=== PATIENT | female | born 1945 | race Caucasian/White ===

== ENCOUNTER 2017-04-17 20:00 | Inpatient (IN) | payer MEDICARE, OTHER ==
[~2017-04-17] VITALS: Ht 154.9 cm; Wt 80.6 kg
[~2017-04-17 20:00] MED LIST: METF500T4 PO
[2017-04-17 20:22] LABS: GLUCOSE,POINT OF CARE 290 MG/DL (70-110)
[2017-04-17] MEDS ORDERED: CefTRIAXone 1 GM/DEXTROSE 50 ML IV ONE (23:30)
[2017-04-17] MEDS ORDERED: 0.9% SODIUM CHLORIDE 10 ML SYRINGE IVP PRN (23:45)
[2017-04-17] MEDS ORDERED: PIPERACILLIN/TAZO 3.375 GM/D5W 50 ML IV ONE (23:45)
[2017-04-17] MEDS ORDERED: ONDANSETRON HCL 4 MG/2 ML VIAL IVP PRN (23:45)
[2017-04-17 23:48] LABS: BASOPHILS % (AUTO) 0.1 % (0.0-2.0); EOSINOPHILS % (AUTO) 2.7 % (1.0-6.0); HEMATOCRIT 35.7 % (36-46); HEMOGLOBIN 12.1 g/dL (12.0-16.0); LYMPHOCYTES # (AUTO) 0.9 K/uL (1.0-4.8); LYMPHOCYTES % (AUTO) 14.1 % (22.0-44.0); MEAN CORPUSCULAR HEMOGLOBIN 28.5 pg (26.0-34.0); MEAN CORPUSCULAR HGB CONC 33.8 G/dL (31.0-37.0); MEAN CORPUSCULAR VOLUME 84 fL (80-100); MONOCYTES # (AUTO) 0.4 K/uL (0.1-1.0); MONOCYTES % (AUTO) 5.8 % (2.0-9.0); NEUTROPHILS # (AUTO) 4.8 K/uL (1.8-7.7); NEUTROPHILS % (AUTO) 77.3 % (40.0-70.0); PLATELET COUNT (AUTO) 258 K/uL (150-450); RED BLOOD CELL COUNT(AUTO) 4.23 MIL/uL (4.00-5.20); RED CELL DISTRIBUTION WIDTH 15.1 % (11.5-14.5); WHITE BLOOD COUNT (AUTO) 6.3 K/uL (4.5-11.0)
[2017-04-17 23:58] LABS: CALCIUM, TOTAL 8.7 mg/dL (8.8-10.5); CREATININE 1.01 mg/dL (0.60-1.30); POTASSIUM 3.8 mmol/L (3.5-5.1); PROTHROMBIN TIME 10.3 SEC (9.4-11.6)
[2017-04-18 00:06] LABS: ALBUMIN 2.6 g/dL (3.4-5.0); BILIRUBIN,TOTAL 0.3 mg/dL (0.1-1.0); TOTAL PROTEIN, SERUM 7.7 g/dL (6.4-8.2)
[2017-04-18 00:29] LABS: APPEARANCE,URINE CLEAR (CLEAR); GLUCOSE, URINE (UA) >=1000 mg/dL (NEGATIVE); KETONES,URINE NEGATIVE (NEGATIVE); LEUKOCYTE ESTERASE ,URINE NEGATIVE (NEGATIVE); OCCULT BLOOD,URINE TRACE (NEGATIVE); PROTEIN,URINE SEE CONFIRM (NEGATIVE)
[2017-04-18] MEDS: ACETAMINOPHEN 325 MG TABLET PO PRN ×2 (00:49→05:19)
[2017-04-18 01:01] LABS: SULFOSALICYLIC ACID,URINE 2+ (Negative); WBC,URINE 0-2 /HPF (0-5)
[2017-04-18 01:02] LABS: SQUAMOUS EPITHELIAL CELL,UR Few /LPF (None Seen)
[2017-04-18 01:36] VITALS: BP 185/85
[2017-04-18 05:07] VITALS: BP 138/73
[2017-04-18 07:45] VITALS: BP 134/76
[2017-04-18] MEDS ORDERED: ACETAMINOPHEN 325 MG TABLET PO PRN (08:45)
[2017-04-18] MEDS ORDERED: ALBUTEROL SULFATE 2.5 MG/0.5 ML NEB SOLUTION NEB PRN (08:45)
[2017-04-18] MEDS ORDERED: MAGNESIUM HYDROXIDE SUSPENSION 30 ML UDCUP PO PRN (08:45)
[2017-04-18] MEDS ORDERED: DOCUSATE SODIUM 100 MG CAPSULE PO SCH (09:00)
[2017-04-18] MEDS ORDERED: INSULIN ASPART 100 UNITS/ML SQ PRN (09:00)
[2017-04-18] MEDS ORDERED: PANTOPRAZOLE SODIUM 40 MG DR TABLET PO SCH (09:00)
[2017-04-18] MEDS ORDERED: SODIUM CHLORIDE 0.9% 1,000 ML IV ONE (09:00)
[2017-04-18] MEDS ORDERED: DEXTROSE 50%-WATER 25 GM/50 ML SYRINGE IVP PRN (09:00)
[2017-04-18] MEDS ORDERED: NYSTATIN 15 GM POWDER BOTTLE TP SCH (09:00)
[2017-04-18 11:02] VITALS: BP 132/73
[2017-04-18 14:50] VITALS: BP 157/76
[2017-04-18] MEDS ORDERED: HEPARIN SODIUM,PORCINE 5,000 UNITS/ML VIAL SQ SCH (16:00)
[2017-04-19 03:53] LABS: GLUCOSE COMMENT 1 Received Meds; GLUCOSE,POINT OF CARE 337 MG/DL (70-110)
== END 2017-04-18 16:45 | disposition left against medical advice (07) | DRG 638 ==
LOC: EMS 20:02 → 5S 23:00 → 6N 04-18 14:07
PROVIDERS: ADMIT Internal Medicine; ATTEND Internal Medicine
DX: E11.65 Type 2 diabetes mellitus with hyperglycemia (principal); E44.0 Moderate protein-calorie malnutrition; W19.XXXA Unspecified fall, initial encounter; S81.809A Unspecified open wound, unspecified lower leg, initial encounter; Z59.0 Homelessness; R53.81 Other malaise; I10 Essential (primary) hypertension; M17.12 Unilateral primary osteoarthritis, left knee; Z53.21 Procedure and treatment not carried out due to patient leaving prior to being seen by health care provider; F29 Unspecified psychosis not due to a substance or known physiological condition; Z68.33 Body mass index [BMI] 33.0-33.9, adult; Y93.89 Activity, other specified; Y92.89 Other specified places as the place of occurrence of the external cause; Y99.8 Other external cause status
CPT/HCPCS: 82962; 83605; 87040; 87081; 93005; 93970; 96365; 96366; 96368; 97161; 99285; J0696; J2543

== ENCOUNTER 2017-06-12 11:39 | Emergency (ER) | payer MEDICARE, OTHER ==
[~2017-06-12] VITALS: Ht 154.9 cm; Wt 82.7 kg
[2017-06-12] MEDS ORDERED: BLOOD PRESSURE PO (11:49)
[2017-06-12 13:03] LABS: GLUCOSE,POINT OF CARE 300 MG/DL (70-110)
[2017-06-12 14:20] LABS: BASOPHILS % (AUTO) 0.9 % (0.0-2.0); EOSINOPHILS % (AUTO) 4.2 % (1.0-6.0); HEMATOCRIT 31.8 % (36-46); HEMOGLOBIN 10.9 g/dL (12.0-16.0); LYMPHOCYTES # (AUTO) 0.7 K/uL (1.0-4.8); LYMPHOCYTES % (AUTO) 13.9 % (22.0-44.0); MEAN CORPUSCULAR HEMOGLOBIN 28.7 pg (26.0-34.0); MEAN CORPUSCULAR HGB CONC 34.2 G/dL (31.0-37.0); MEAN CORPUSCULAR VOLUME 84 fL (80-100); MONOCYTES # (AUTO) 0.4 K/uL (0.1-1.0); MONOCYTES % (AUTO) 7.9 % (2.0-9.0); NEUTROPHILS # (AUTO) 3.6 K/uL (1.8-7.7); NEUTROPHILS % (AUTO) 73.1 % (40.0-70.0); PLATELET COUNT (AUTO) 279 K/uL (150-450); RED BLOOD CELL COUNT(AUTO) 3.78 MIL/uL (4.00-5.20); RED CELL DISTRIBUTION WIDTH 14.9 % (11.5-14.5); WHITE BLOOD COUNT (AUTO) 4.9 K/uL (4.5-11.0)
[2017-06-12] MEDS ORDERED: SODIUM CHLORIDE 0.9% 1,000 ML IV ONE ×2 (14:30→16:00)
[2017-06-12 14:31] LABS: ANION GAP 4 mmol/L (8-16); CALCIUM, TOTAL 8.5 mg/dL (8.8-10.5); CARBON DIOXIDE 30 mmol/L (22-29); CHLORIDE 103 mmol/L (98-107); CREATININE 0.96 mg/dL (0.60-1.30); GLOMERULAR FILTR. RATE CALC 57 mL/min (>60); POTASSIUM 4.3 mmol/L (3.5-5.1); SODIUM SERUM 137 mmol/L (136-145); UREA NITROGEN, BLOOD 18 mg/dL (7-18)
[2017-06-12 14:36] LABS: ALANINE AMINOTRANSFERASE 16 U/L (12-78); ALBUMIN 2.4 g/dL (3.4-5.0); ASPARTATE AMINOTRANSFERASE 13 U/L (15-37); BILIRUBIN,TOTAL 0.1 mg/dL (0.1-1.0); CREATINE KINASE, TOTAL 60 U/L (26-192); TOTAL PROTEIN, SERUM 7.3 g/dL (6.4-8.2)
[2017-06-12 14:40] LABS: PROTHROMBIN TIME 10.1 SEC (9.4-11.6)
[2017-06-12 14:45] LABS: B-TYPE NATRIURETIC PEPTIDE 135 pg/mL (0-100)
[2017-06-12] MEDS ORDERED: CIPROFLOXACIN HCL 250 MG TABLET PO ONE (17:15)
[2017-06-12] MEDS ORDERED: BACITRACIN 0.9 GM PACKET OINTMENT TP ONE (17:15)
[2017-06-12] MEDS ORDERED: CEPHALEXIN MONOHYDRATE 500 MG CAPSULE PO ONE (17:15)
[2017-06-12 17:32] VITALS: BP 135/71
[2017-06-12 17:49] LABS: APPEARANCE,URINE CLEAR (CLEAR); GLUCOSE, URINE (UA) >=1000 mg/dL (NEGATIVE); KETONES,URINE NEGATIVE (NEGATIVE); LEUKOCYTE ESTERASE ,URINE NEGATIVE (NEGATIVE); OCCULT BLOOD,URINE NEGATIVE (NEGATIVE); PH,URINE 6.5 (5.0-8.0); PROTEIN,URINE SEE CONFIRM (NEGATIVE)
[2017-06-12 17:51] LABS: ADD UA MICROSCOPIC YES
[2017-06-12 18:00] LABS: SULFOSALICYLIC ACID,URINE 2+ (Negative)
[2017-06-12 18:01] LABS: RBC,URINE None Seen /HPF (0-2); WBC,URINE 0-2 /HPF (0-5)
== END 2017-06-12 17:32 | disposition home or self-care (01) ==
LOC: EMS 11:41
DX: E86.0 Dehydration (principal); E11.65 Type 2 diabetes mellitus with hyperglycemia; L03.116 Cellulitis of left lower limb; T75.89XA Other specified effects of external causes, initial encounter; I10 Essential (primary) hypertension; Z91.14 Patient's other noncompliance with medication regimen; X30.XXXA Exposure to excessive natural heat, initial encounter; Y93.89 Activity, other specified; Y92.89 Other specified places as the place of occurrence of the external cause; Y99.8 Other external cause status
CPT/HCPCS: 36415; 51702; 71010; 80053; 81001; 82550; 82962; 83880; 84484; 85025; 85610; 85730; 93005; 99285; J7030

== ENCOUNTER 2018-02-11 09:47 | Emergency (ER) | payer MEDICARE, OTHER ==
[~2018-02-11] VITALS: Ht 154.9 cm; Wt 83.2 kg
[~2018-02-11 09:47] MED LIST changes: +BLOOD PRESSURE PO; -METF500T4 PO; +METF500T6 PO
[2018-02-11 10:05] LABS: GLUCOSE,POINT OF CARE 213 MG/DL (70-110)
[2018-02-11] MEDS ORDERED: ONDANSETRON HCL 4 MG TABLET PO ONE (11:45)
[2018-02-11] MEDS ORDERED: CefTRIAXone SODIUM 1 GM/VIAL IM ONE (11:45)
[2018-02-11] MEDS ORDERED: HYDROCODONE/ACETAMINOPHEN 10-325 MG TABLET PO ONE (11:45)
[2018-02-11] MEDS ORDERED: MUPIROCIN CALCIUM 2% 15 GM CREAM TP ONE (11:45)
[2018-02-11] MEDS ORDERED: LIDOCAINE HCL/PF 1% 2 ML VIAL IM ONE (11:45)
[2018-02-11 12:57] VITALS: BP 175/79
== END 2018-02-11 12:55 | disposition home or self-care (01) ==
LOC: EMS 09:49
DX: L03.115 Cellulitis of right lower limb (principal); I10 Essential (primary) hypertension; E11.9 Type 2 diabetes mellitus without complications
CPT/HCPCS: 82962; 87070; 87077; 87205; 96372; 99284; J0696; J3490; Q0162

== ENCOUNTER 2018-02-24 08:27 | Emergency (ER) | payer MEDICARE, OTHER ==
[~2018-02-24] VITALS: Ht 154.9 cm; Wt 83.2 kg
[2018-02-24 08:39] LABS: GLUCOSE,POINT OF CARE 283 MG/DL (70-110)
[2018-02-24] MEDS ORDERED: HYDROGEN PEROXIDE 118 ML SOLUTION TP ONE (09:15)
[2018-02-24] MEDS ORDERED: AmLODIPine BESYLATE 5 MG TABLET PO ONE (09:15)
[2018-02-24] MEDS ORDERED: BACITRACIN 0.9 GM PACKET OINTMENT TP ONE ×2 (09:15→09:30)
[2018-02-24] MEDS ORDERED: BACITRACIN 28.4 GM OINTMENT TP ONE (09:30)
[2018-02-24 10:36] VITALS: BP 185/89
== END 2018-02-24 10:38 | disposition home or self-care (01) ==
LOC: EMS 08:28
DX: L03.116 Cellulitis of left lower limb (principal); L03.115 Cellulitis of right lower limb; E11.65 Type 2 diabetes mellitus with hyperglycemia; I10 Essential (primary) hypertension; R60.0 Localized edema; M19.90 Unspecified osteoarthritis, unspecified site; Z79.84 Long term (current) use of oral hypoglycemic drugs
CPT/HCPCS: 11000; 99284

== ENCOUNTER 2018-04-05 07:01 | Inpatient (IN) | payer MEDICARE, OTHER ==
[~2018-04-05] VITALS: Ht 154.9 cm; Wt 82.7 kg
[2018-04-05 07:18] LABS: GLUCOSE,POINT OF CARE 284 MG/DL (70-110)
[2018-04-05] MEDS ORDERED: VANCOMYCIN HCL 1 GM/D5% WATER 200 ML IV ONE (08:30)
[2018-04-05 08:40] LABS: BASOPHILS % (AUTO) 1.2 % (0.0-2.0); EOSINOPHILS % (AUTO) 5.4 % (1.0-6.0); HEMATOCRIT 34.3 % (36-46); HEMOGLOBIN 11.5 g/dL (12.0-16.0); LYMPHOCYTES # (AUTO) 1.2 K/uL (1.0-4.8); LYMPHOCYTES % (AUTO) 20.9 % (22.0-44.0); MEAN CORPUSCULAR HEMOGLOBIN 27.8 pg (26.0-34.0); MEAN CORPUSCULAR HGB CONC 33.7 G/dL (31.0-37.0); MEAN CORPUSCULAR VOLUME 83 fL (80-100); MONOCYTES # (AUTO) 0.4 K/uL (0.1-1.0); MONOCYTES % (AUTO) 6.8 % (2.0-9.0); NEUTROPHILS # (AUTO) 3.7 K/uL (1.8-7.7); NEUTROPHILS % (AUTO) 65.7 % (40.0-70.0); PLATELET COUNT (AUTO) 284 K/uL (150-450); RED BLOOD CELL COUNT(AUTO) 4.14 MIL/uL (4.00-5.20)
[2018-04-05 09:04] LABS: CALCIUM, TOTAL 8.9 mg/dL (8.8-10.5); CREATININE 1.19 mg/dL (0.60-1.30); POTASSIUM 3.5 mmol/L (3.5-5.1)
[2018-04-05 09:10] LABS: ALBUMIN 2.5 g/dL (3.4-5.0); BILIRUBIN,TOTAL 0.2 mg/dL (0.1-1.0); TOTAL PROTEIN, SERUM 7.9 g/dL (6.4-8.2)
[2018-04-05] MEDS ORDERED: METOPROLOL TARTRATE 50 MG TABLET PO ONE (09:45)
[2018-04-05] MEDS ORDERED: MetFORMIN HCL 500 MG TABLET PO ONE (09:45)
[2018-04-05] MEDS ORDERED: LISINOPRIL 10 MG TABLET PO ONE (09:45)
[2018-04-05 09:49] LABS: LACTIC ACID 1.2 mmol/L (0.4-2.0)
[2018-04-05] MEDS ORDERED: ONDANSETRON HCL 4 MG/2 ML VIAL IVP PRN ×2 (10:15→21:45)
[2018-04-05] MEDS ORDERED: 0.9% SODIUM CHLORIDE 10 ML SYRINGE IVP PRN ×2 (10:15→21:45)
[2018-04-05] MEDS ORDERED: ACETAMINOPHEN 325 MG TABLET PO PRN (10:15)
[2018-04-05 11:21] VITALS: BP 190/82
[2018-04-05 11:49] LABS: GLUCOMETER DEV NAME(LOC) 6N 2D; GLUCOSE,POINT OF CARE 288 MG/DL (70-110)
[2018-04-05] MEDS ORDERED: DEXTROSE 50%-WATER 25 GM/50 ML SYRINGE IVP PRN (12:00)
[2018-04-05] MEDS: INSULIN LISPRO 100 UNITS/ML SQ PRN ×3 (12:29→20:40)
[2018-04-05 15:39] VITALS: BP 138/64
[2018-04-05] MEDS ORDERED: HYDROCODONE/ACETAMINOPHEN 5-325 MG TABLET PO PRN ×2 (16:45)
[2018-04-05 20:03] VITALS: BP 165/76
[2018-04-05] MEDS: VANCOMYCIN HCL 750 MG in DEXTROSE 5%-WATER 250 ML IV SCH (20:23)
[2018-04-05] MEDS: HydrALAZINE HCL 10 MG TABLET PO PRN (20:23)
[2018-04-05] MEDS: HEPARIN SODIUM,PORCINE 5,000 UNITS/ML VIAL SQ SCH (20:23)
[2018-04-05] MEDS ORDERED: SODIUM CHLORIDE 0.9% 500 ML IV ONE (20:27)
[2018-04-05 21:43] LABS: GLUCOMETER DEV NAME(LOC) 6N 2D; GLUCOSE,POINT OF CARE 238 MG/DL (70-110)
[2018-04-05 21:43] LABS: GLUCOMETER DEV NAME(LOC) 6N 2D; GLUCOSE,POINT OF CARE 181 MG/DL (70-110)
[2018-04-05] MEDS ORDERED: OxyCODONE HCL/ACETAMINOPHEN 5-325 MG TABLET PO PRN ×2 (21:45)
[2018-04-05] MEDS: DOCUSATE SODIUM 100 MG CAPSULE PO SCH (22:38)
[2018-04-06] VITALS (7 sets, daily range): BP systolic 131–213; BP diastolic 58–85
[2018-04-06 05:53] LABS: BASOPHILS % (AUTO) 0.8 % (0.0-2.0); EOSINOPHILS % (AUTO) 3.4 % (1.0-6.0); HEMATOCRIT 32.3 % (36-46); HEMOGLOBIN 10.9 g/dL (12.0-16.0); LYMPHOCYTES % (AUTO) 18.4 % (22.0-44.0); MEAN CORPUSCULAR HEMOGLOBIN 28.2 pg (26.0-34.0); MEAN CORPUSCULAR HGB CONC 33.6 G/dL (31.0-37.0); MEAN CORPUSCULAR VOLUME 84 fL (80-100); MONOCYTES # (AUTO) 0.4 K/uL (0.1-1.0); NEUTROPHILS # (AUTO) 3.8 K/uL (1.8-7.7); NEUTROPHILS % (AUTO) 69.4 % (40.0-70.0); PLATELET COUNT (AUTO) 256 K/uL (150-450); RED BLOOD CELL COUNT(AUTO) 3.85 MIL/uL (4.00-5.20); RED CELL DISTRIBUTION WIDTH 15.2 % (11.5-14.5)
[2018-04-06] MEDS: INSULIN LISPRO 100 UNITS/ML SQ PRN ×4 (06:01→21:43)
[2018-04-06 06:20] LABS: ALBUMIN 2.1 g/dL (3.4-5.0); BILIRUBIN,TOTAL 0.4 mg/dL (0.1-1.0); CALCIUM, TOTAL 8.5 mg/dL (8.8-10.5); CREATININE 1.22 mg/dL (0.60-1.30); TOTAL PROTEIN, SERUM 6.9 g/dL (6.4-8.2)
[2018-04-06 07:03] LABS: GLUCOMETER DEV NAME(LOC) 6N 2D; GLUCOSE,POINT OF CARE 289 MG/DL (70-110)
[2018-04-06] MEDS: PANTOPRAZOLE SODIUM 40 MG/VIAL IVP SCH (08:35)
[2018-04-06] MEDS: VANCOMYCIN HCL 750 MG in DEXTROSE 5%-WATER 250 ML IV SCH ×2 (08:35→20:08)
[2018-04-06] MEDS: DOCUSATE SODIUM 100 MG CAPSULE PO SCH ×2 (08:36→20:08)
[2018-04-06] MEDS: HEPARIN SODIUM,PORCINE 5,000 UNITS/ML VIAL SQ SCH ×2 (08:36→20:08)
[2018-04-06 11:54] LABS: GLUCOMETER DEV NAME(LOC) 6N 1E; GLUCOSE,POINT OF CARE 183 MG/DL (70-110)
[2018-04-06 19:34] LABS: GLUCOMETER DEV NAME(LOC) 6N 2D; GLUCOSE,POINT OF CARE 233 MG/DL (70-110)
[2018-04-06 20:58] LABS: GLUCOMETER DEV NAME(LOC) 6N 2D; GLUCOSE,POINT OF CARE 278 MG/DL (70-110)
[2018-04-07] VITALS (7 sets, daily range): BP systolic 160–208; BP diastolic 65–91
[2018-04-07] MEDS: HydrALAZINE HCL 10 MG TABLET PO PRN ×4 (00:11→22:37)
[2018-04-07 05:33] LABS: GLUCOMETER DEV NAME(LOC) 6N 2D; GLUCOSE,POINT OF CARE 195 MG/DL (70-110)
[2018-04-07] MEDS: INSULIN LISPRO 100 UNITS/ML SQ PRN ×4 (06:10→21:11)
[2018-04-07 07:40] LABS: CALCIUM, TOTAL 8.3 mg/dL (8.8-10.5); CREATININE 1.1 mg/dL (0.60-1.30); POTASSIUM 3.1 mmol/L (3.5-5.1); VANCOMYCIN,RANDOM 34.5 mcg/mL (25.0-50.0)
[2018-04-07] MEDS: PANTOPRAZOLE SODIUM 40 MG/VIAL IVP SCH (08:40)
[2018-04-07] MEDS: ZINC SULFATE 220 MG CAPSULE PO SCH ×2 (08:41→09:00)
[2018-04-07] MEDS: MULTIVITAMINS WITH MINERALS, THERAPEUTIC TABLET PO SCH ×2 (08:41→09:00)
[2018-04-07] MEDS: HEPARIN SODIUM,PORCINE 5,000 UNITS/ML VIAL SQ SCH ×2 (08:41→19:52)
[2018-04-07] MEDS: DOCUSATE SODIUM 100 MG CAPSULE PO SCH ×2 (08:41→19:52)
[2018-04-07 13:23] LABS: GLUCOMETER DEV NAME(LOC) 6N 2D; GLUCOSE,POINT OF CARE 281 MG/DL (70-110)
[2018-04-07 17:49] LABS: GLUCOMETER DEV NAME(LOC) 6N 2D; GLUCOSE,POINT OF CARE 194 MG/DL (70-110)
[2018-04-07] MEDS: CIPROFLOXACIN HCL 500 MG TABLET PO SCH (19:52)
[2018-04-08 00:24] LABS: GLUCOMETER DEV NAME(LOC) 6N 2D; GLUCOSE,POINT OF CARE 197 MG/DL (70-110)
[2018-04-08 04:02] VITALS: BP 205/90
[2018-04-08] MEDS: HydrALAZINE HCL 10 MG TABLET PO PRN ×3 (04:06→21:59)
[2018-04-08] MEDS: INSULIN LISPRO 100 UNITS/ML SQ PRN ×4 (05:47→20:30)
[2018-04-08 06:39] LABS: GLUCOMETER DEV NAME(LOC) 6N 2D; GLUCOSE,POINT OF CARE 156 MG/DL (70-110)
[2018-04-08 06:50] LABS: CALCIUM, TOTAL 8.5 mg/dL (8.8-10.5); CREATININE 1.04 mg/dL (0.60-1.30); POTASSIUM 3.1 mmol/L (3.5-5.1)
[2018-04-08 06:52] LABS: BASOPHILS % (AUTO) 1.2 % (0.0-2.0); EOSINOPHILS % (AUTO) 5.8 % (1.0-6.0); HEMOGLOBIN 11.8 g/dL (12.0-16.0); LYMPHOCYTES # (AUTO) 0.9 K/uL (1.0-4.8); LYMPHOCYTES % (AUTO) 22.3 % (22.0-44.0); MEAN CORPUSCULAR HEMOGLOBIN 28.2 pg (26.0-34.0); MEAN CORPUSCULAR HGB CONC 33.8 G/dL (31.0-37.0); MEAN CORPUSCULAR VOLUME 83 fL (80-100); MONOCYTES # (AUTO) 0.4 K/uL (0.1-1.0); MONOCYTES % (AUTO) 9.3 % (2.0-9.0); NEUTROPHILS # (AUTO) 2.6 K/uL (1.8-7.7); NEUTROPHILS % (AUTO) 61.4 % (40.0-70.0); PLATELET COUNT (AUTO) 263 K/uL (150-450); RED CELL DISTRIBUTION WIDTH 15.1 % (11.5-14.5)
[2018-04-08 07:15] VITALS: BP 183/77
[2018-04-08] MEDS ORDERED: VANCOMYCIN HCL 1 GM/D5% WATER 200 ML IV SCH (08:00)
[2018-04-08] MEDS: ZINC SULFATE 220 MG CAPSULE PO SCH (09:37)
[2018-04-08] MEDS: MULTIVITAMINS WITH MINERALS, THERAPEUTIC TABLET PO SCH (09:38)
[2018-04-08] MEDS: DOCUSATE SODIUM 100 MG CAPSULE PO SCH ×2 (09:38→20:30)
[2018-04-08] MEDS: PANTOPRAZOLE SODIUM 40 MG/VIAL IVP SCH (09:39)
[2018-04-08] MEDS: HEPARIN SODIUM,PORCINE 5,000 UNITS/ML VIAL SQ SCH ×2 (09:41→20:30)
[2018-04-08] MEDS: CIPROFLOXACIN HCL 500 MG TABLET PO SCH (09:48)
[2018-04-08 11:40] VITALS: BP 158/69
[2018-04-08 11:58] LABS: GLUCOMETER DEV NAME(LOC) 6N 1E; GLUCOSE,POINT OF CARE 244 MG/DL (70-110)
[2018-04-08] MEDS ORDERED: POTASSIUM CHLORIDE 20 MEQ ER TABLET PO ONE (14:30)
[2018-04-08 15:22] VITALS: BP 187/90
[2018-04-08] MEDS: LEVOFLOXACIN 500 MG TABLET PO SCH (17:23)
[2018-04-08 19:58] VITALS: BP 184/89
[2018-04-08 23:43] LABS: GLUCOMETER DEV NAME(LOC) 6N 2D; GLUCOSE,POINT OF CARE 146 MG/DL (70-110)
[2018-04-08 23:44] LABS: GLUCOMETER DEV NAME(LOC) 6N 2D; GLUCOSE,POINT OF CARE 240 MG/DL (70-110)
[2018-04-08 23:56] VITALS: BP 184/71
[2018-04-09 05:04] VITALS: BP 172/73
[2018-04-09] MEDS: INSULIN LISPRO 100 UNITS/ML SQ PRN ×2 (05:29→12:15)
[2018-04-09] MEDS: HydrALAZINE HCL 10 MG TABLET PO PRN (05:29)
[2018-04-09 05:49] LABS: BASOPHILS % (AUTO) 1.4 % (0.0-2.0); EOSINOPHILS % (AUTO) 5.4 % (1.0-6.0); HEMATOCRIT 34.7 % (36-46); HEMOGLOBIN 11.8 g/dL (12.0-16.0); LYMPHOCYTES % (AUTO) 24.7 % (22.0-44.0); MEAN CORPUSCULAR HEMOGLOBIN 28.2 pg (26.0-34.0); MEAN CORPUSCULAR HGB CONC 33.9 G/dL (31.0-37.0); MEAN CORPUSCULAR VOLUME 83 fL (80-100); MONOCYTES # (AUTO) 0.4 K/uL (0.1-1.0); MONOCYTES % (AUTO) 9.2 % (2.0-9.0); NEUTROPHILS # (AUTO) 2.3 K/uL (1.8-7.7); NEUTROPHILS % (AUTO) 59.3 % (40.0-70.0); PLATELET COUNT (AUTO) 271 K/uL (150-450); RED BLOOD CELL COUNT(AUTO) 4.17 MIL/uL (4.00-5.20)
[2018-04-09 06:02] LABS: CALCIUM, TOTAL 8.5 mg/dL (8.8-10.5); CREATININE 1.16 mg/dL (0.60-1.30); POTASSIUM 3.6 mmol/L (3.5-5.1)
[2018-04-09 06:40] LABS: GLUCOMETER DEV NAME(LOC) 6N 2D; GLUCOSE,POINT OF CARE 152 MG/DL (70-110)
[2018-04-09 08:09] VITALS: BP 184/68
[2018-04-09] MEDS: HEPARIN SODIUM,PORCINE 5,000 UNITS/ML VIAL SQ SCH (08:19)
[2018-04-09] MEDS: DOCUSATE SODIUM 100 MG CAPSULE PO SCH (08:20)
[2018-04-09] MEDS: ZINC SULFATE 220 MG CAPSULE PO SCH (08:20)
[2018-04-09] MEDS: PANTOPRAZOLE SODIUM 40 MG/VIAL IVP SCH (08:20)
[2018-04-09] MEDS: LEVOFLOXACIN 500 MG TABLET PO SCH (08:20)
[2018-04-09] MEDS: MULTIVITAMINS WITH MINERALS, THERAPEUTIC TABLET PO SCH (08:20)
[2018-04-09] MEDS ORDERED: CHLORHEXIDINE GLUCONATE 4% 118 ML TOPICAL LIQUID TP SCH (09:00)
[2018-04-09] MEDS ORDERED: LOSARTAN POTASSIUM 50 MG TABLET PO ONE (11:30)
[2018-04-09 11:57] VITALS: BP 142/63
[2018-04-09] MEDS ORDERED: LOSA25TA21 PO (14:40)
[2018-04-09] MEDS ORDERED: LEVO500 PO (14:41)
[2018-04-09 18:55] LABS: GLUCOMETER DEV NAME(LOC) 6N 1E; GLUCOSE,POINT OF CARE 243 MG/DL (70-110)
== END 2018-04-09 17:50 | disposition home or self-care (01) | DRG 602 ==
LOC: EMS 07:02 → 6N 10:07
PROVIDERS: ADMIT Internal Medicine; ATTEND Internal Medicine
DX: L03.116 Cellulitis of left lower limb (principal); E43 Unspecified severe protein-calorie malnutrition; I10 Essential (primary) hypertension; M19.90 Unspecified osteoarthritis, unspecified site; L03.115 Cellulitis of right lower limb; E87.6 Hypokalemia; E11.65 Type 2 diabetes mellitus with hyperglycemia; Z91.19 Patient's noncompliance with other medical treatment and regimen; Z59.0 Homelessness; Z68.34 Body mass index [BMI] 34.0-34.9, adult
CPT/HCPCS: 83605; 84132; 87040; 87070; 87205; 96365; 96366; 97162; 99285; C9113; J1644; J3370; J7040; J7060

== ENCOUNTER 2018-08-02 16:26 | Emergency (ER) | payer MEDICARE, OTHER ==
[~2018-08-02] VITALS: Ht 157.5 cm; Wt 89.0 kg
[~2018-08-02 16:26] MED LIST changes: +LEVO500 PO; +LOSA25TA41 PO; +METF-960 PO; -METF500T6 PO
[2018-08-02 17:03] VITALS: BP 189/90
[2018-08-02 17:10] LABS: GLUCOSE,POINT OF CARE 375 MG/DL (70-110)
[2018-08-02] MEDS ORDERED: SODIUM CHLORIDE 0.9% 1,000 ML IV ONE (17:30)
== END 2018-08-02 20:40 | disposition left against medical advice (07) ==
LOC: EMS 16:27
DX: R42 Dizziness and giddiness (principal); E11.9 Type 2 diabetes mellitus without complications; I10 Essential (primary) hypertension; W19.XXXA Unspecified fall, initial encounter; Y93.89 Activity, other specified; Y92.89 Other specified places as the place of occurrence of the external cause; Y99.8 Other external cause status
CPT/HCPCS: 82962; 93005; 99283; J7030

== ENCOUNTER 2019-01-31 16:44 | Emergency (ER) | payer MEDICARE, OTHER ==
[~2019-01-31] VITALS: Ht 154.9 cm; Wt 87.3 kg
[~2019-01-31 16:44] MED LIST changes: +ALBU8HFA IH; +AMLO-512 PO; -BLOOD PRESSURE PO; +FLUT1BLS IH; +GLIP5 PO; +LABE100T8 PO; -LEVO500 PO; -LOSA25TA41 PO; -METF-960 PO
[2019-01-31] MEDS ORDERED: 0.9% SODIUM CHLORIDE 10 ML SYRINGE IVP PRN (17:30)
[2019-01-31 18:02] LABS: BASOPHILS % (AUTO) 1.4 % (0.0-2.0); EOSINOPHILS % (AUTO) 5.8 % (1.0-6.0); HEMATOCRIT 23.5 % (36-46); HEMOGLOBIN 7.8 g/dL (12.0-16.0); LYMPHOCYTES # (AUTO) 0.6 K/uL (1.0-4.8); LYMPHOCYTES % (AUTO) 15.2 % (22.0-44.0); MEAN CORPUSCULAR HEMOGLOBIN 25.3 pg (26.0-34.0); MEAN CORPUSCULAR HGB CONC 32.9 G/dL (31.0-37.0); MEAN CORPUSCULAR VOLUME 77 fL (80-100); MONOCYTES # (AUTO) 0.3 K/uL (0.1-1.0); MONOCYTES % (AUTO) 8.6 % (2.0-9.0); NEUTROPHILS # (AUTO) 2.6 K/uL (1.8-7.7); PLATELET COUNT (AUTO) 379 K/uL (150-450); RED BLOOD CELL COUNT(AUTO) 3.06 MIL/uL (4.00-5.20); RED CELL DISTRIBUTION WIDTH 19.4 % (11.5-14.5)
[2019-01-31 18:24] LABS: CALCIUM, TOTAL 8.2 mg/dL (8.8-10.5); CREATININE 1.6 mg/dL (0.60-1.30)
[2019-01-31 18:29] LABS: ALBUMIN 1.8 g/dL (3.4-5.0); BILIRUBIN,TOTAL 0.1 mg/dL (0.1-1.0); TOTAL PROTEIN, SERUM 6.2 g/dL (6.4-8.2)
[2019-01-31] MEDS ORDERED: CefTRIAXone 1 GM/DEXTROSE 50 ML IV ONE (19:30)
[2019-01-31] MEDS ORDERED: SULFAMETHOX/TRIMETH DS 800-160 MG/TABLET PO ONE (19:30)
[2019-01-31 19:45] VITALS: BP 142/59
== END 2019-01-31 21:47 | disposition home or self-care (01) ==
LOC: EMS 16:46
DX: L03.116 Cellulitis of left lower limb (principal); L03.115 Cellulitis of right lower limb; J45.909 Unspecified asthma, uncomplicated; E11.9 Type 2 diabetes mellitus without complications; I10 Essential (primary) hypertension; M19.90 Unspecified osteoarthritis, unspecified site; Z88.5 Allergy status to narcotic agent
CPT/HCPCS: 36415; 80053; 83605; 85025; 87040; 96365; 99285; J0696

== ENCOUNTER 2019-09-15 21:33 | Emergency (ER) | payer MEDICARE, OTHER ==
[~2019-09-15] VITALS: Ht 154.9 cm; Wt 59.5 kg
[2019-09-15] MEDS ORDERED: LEVO25TA9 PO (23:17)
[2019-09-15] MEDS ORDERED: PARI1CAP11 PO (23:17)
[2019-09-15] MEDS ORDERED: METO25 PO (23:17)
[2019-09-15] MEDS ORDERED: CEPH500 PO (23:17)
[2019-09-15] MEDS ORDERED: ATOR40TA28 PO (23:17)
[2019-09-16 01:00] VITALS: BP 143/74
== END 2019-09-16 01:58 | disposition home or self-care (01) ==
LOC: EMS 21:38
DX: T83.028A Displacement of other urinary catheter, initial encounter (principal); R33.9 Retention of urine, unspecified; L03.116 Cellulitis of left lower limb; L03.115 Cellulitis of right lower limb; E11.9 Type 2 diabetes mellitus without complications; I10 Essential (primary) hypertension; J45.909 Unspecified asthma, uncomplicated; M19.90 Unspecified osteoarthritis, unspecified site; Z79.899 Other long term (current) drug therapy; Z88.5 Allergy status to narcotic agent; Y84.6 Urinary catheterization as the cause of abnormal reaction of the patient, or of later complication, without mention of misadventure at the time of the procedure
CPT/HCPCS: 51702

== ENCOUNTER 2019-10-27 10:39 | Inpatient (IN) | payer MEDICARE, OTHER ==
[~2019-10-27] VITALS: Ht 154.9 cm; Wt 63.1 kg
[~2019-10-27 10:39] MED LIST changes: -ALBU8HFA IH; -AMLO-512 PO; +ATOR40TA28 PO; +CEPH500 PO; -FLUT1BLS IH; -GLIP5 PO; -LABE100T8 PO; +LEVO25TA9 PO; +METO25 PO; +PARI1CAP11 PO
[2019-10-27 11:32] LABS: BASOPHILS % (AUTO) 0.8 % (0.0-2.0); EOSINOPHILS % (AUTO) 0.8 % (1.0-6.0); HEMOGLOBIN 13.5 g/dL (12.0-16.0); LYMPHOCYTES # (AUTO) 0.6 K/uL (1.0-4.8); LYMPHOCYTES % (AUTO) 10.7 % (22.0-44.0); MEAN CORPUSCULAR HEMOGLOBIN 27.8 pg (26.0-34.0); MEAN CORPUSCULAR HGB CONC 32.9 G/dL (31.0-37.0); MEAN CORPUSCULAR VOLUME 84 fL (80-100); MONOCYTES # (AUTO) 0.3 K/uL (0.1-1.0); MONOCYTES % (AUTO) 5.7 % (2.0-9.0); NEUTROPHILS # (AUTO) 4.9 K/uL (1.8-7.7); PLATELET COUNT (AUTO) 193 K/uL (150-450); RED BLOOD CELL COUNT(AUTO) 4.86 MIL/uL (4.00-5.20); RED CELL DISTRIBUTION WIDTH 21.6 % (11.5-14.5)
[2019-10-27 11:59] LABS: ANION GAP 8 mmol/L (8-16); CALCIUM, TOTAL 8.9 mg/dL (8.8-10.5); CARBON DIOXIDE 23 mmol/L (22-29); CHLORIDE 104 mmol/L (98-107); CREATININE 2.21 mg/dL (0.60-1.30); GLOMERULAR FILTR. RATE CALC 22 mL/min (>60); GLUCOSE,RANDOM 112 mg/dL (70-110); POTASSIUM 5.2 mmol/L (3.5-5.1); SODIUM SERUM 135 mmol/L (136-145); UREA NITROGEN, BLOOD 72 mg/dL (7-18)
[2019-10-27] MEDS ORDERED: HydrALAZINE HCL 20 MG/ML VIAL IVP ONE (12:00)
[2019-10-27 12:05] LABS: ALANINE AMINOTRANSFERASE 113 U/L (12-78); ALBUMIN 3.1 g/dL (3.4-5.0); ALKALINE PHOSPHATASE 154 U/L (46-116); ASPARTATE AMINOTRANSFERASE 75 U/L (15-37); BILIRUBIN,TOTAL 0.3 mg/dL (0.1-1.0); TOTAL PROTEIN, SERUM 8.3 g/dL (6.4-8.2)
[2019-10-27] MEDS ORDERED: LABETALOL HCL 5 MG/ML 20 ML VIAL IVP ONE (13:15)
[2019-10-27] MEDS ORDERED: ACETAMINOPHEN 325 MG TABLET PO PRN ×2 (13:45→23:30)
[2019-10-27] MEDS ORDERED: 0.9% SODIUM CHLORIDE 10 ML SYRINGE IVP PRN (13:45)
[2019-10-27] MEDS ORDERED: ONDANSETRON HCL 4 MG/2 ML VIAL IVP PRN ×2 (13:45→23:30)
[2019-10-27] MEDS: PARICALCITOL 1 MCG CAPSULE PO SCH (20:30)
[2019-10-27 20:47] VITALS: BP 200/96
[2019-10-27] MEDS: METOPROLOL TARTRATE 25 MG TABLET PO SCH (20:48)
[2019-10-27] MEDS: ATORVASTATIN CALCIUM 40 MG TABLET PO SCH (20:48)
[2019-10-27] MEDS ORDERED: SODIUM CHLORIDE 0.45% 1,000 ML IV ONE (23:30)
[2019-10-27] MEDS ORDERED: ALBUTEROL SULFATE 2.5 MG/0.5 ML NEB SOLUTION NEB PRN (23:30)
[2019-10-27] MEDS ORDERED: ZOLPIDEM TARTRATE 5 MG TABLET PO PRN (23:30)
[2019-10-27] MEDS ORDERED: BISACODYL 10 MG RECTAL RECTAL SUPPOSITORY PR PRN (23:30)
[2019-10-27] MEDS ORDERED: IPRATROPIUM BROMIDE 0.5 MG/2.5 ML NEB SOLUTION NEB PRN (23:30)
[2019-10-27] MEDS ORDERED: MAGNESIUM HYDROXIDE SUSPENSION 30 ML UDCUP PO PRN (23:30)
[2019-10-28] VITALS (8 sets, daily range): BP systolic 154–209; BP diastolic 67–84
[2019-10-28] MEDS: HydrALAZINE HCL 20 MG/ML VIAL IVP PRN ×2 (00:18→22:49)
[2019-10-28] MEDS: LEVOTHYROXINE SODIUM 25 MCG TABLET PO SCH (06:33)
[2019-10-28 07:23] LABS: BASOPHILS % (AUTO) 0.8 % (0.0-2.0); EOSINOPHILS % (AUTO) 2.9 % (1.0-6.0); HEMATOCRIT 31.7 % (36-46); HEMOGLOBIN 10.4 g/dL (12.0-16.0); LYMPHOCYTES # (AUTO) 0.9 K/uL (1.0-4.8); LYMPHOCYTES % (AUTO) 16.6 % (22.0-44.0); MEAN CORPUSCULAR HEMOGLOBIN 27.9 pg (26.0-34.0); MEAN CORPUSCULAR VOLUME 85 fL (80-100); MONOCYTES # (AUTO) 0.4 K/uL (0.1-1.0); MONOCYTES % (AUTO) 7.1 % (2.0-9.0); NEUTROPHILS % (AUTO) 72.6 % (40.0-70.0); PLATELET COUNT (AUTO) 161 K/uL (150-450); RED BLOOD CELL COUNT(AUTO) 3.75 MIL/uL (4.00-5.20); RED CELL DISTRIBUTION WIDTH 21.8 % (11.5-14.5)
[2019-10-28 07:47] LABS: ALBUMIN 2.2 g/dL (3.4-5.0); BILIRUBIN,TOTAL 0.1 mg/dL (0.1-1.0); CALCIUM, TOTAL 7.9 mg/dL (8.8-10.5); CREATININE 2.24 mg/dL (0.60-1.30)
[2019-10-28] MEDS: HEPARIN SODIUM,PORCINE 5,000 UNITS/ML VIAL SQ SCH ×3 (07:53→16:55)
[2019-10-28] MEDS: PARICALCITOL 1 MCG CAPSULE PO SCH (07:54)
[2019-10-28] MEDS: METOPROLOL TARTRATE 25 MG TABLET PO SCH ×2 (07:54→19:59)
[2019-10-28] MEDS: ATORVASTATIN CALCIUM 40 MG TABLET PO SCH (07:54)
[2019-10-28] MEDS: DOCUSATE SODIUM 100 MG CAPSULE PO SCH ×2 (07:58→19:59)
[2019-10-28] MEDS ORDERED: HydrALAZINE HCL 50 MG TABLET PO ONE (11:15)
[2019-10-28] MEDS: HydrALAZINE HCL 50 MG TABLET PO SCH (19:59)
[2019-10-29 00:14] VITALS: BP 188/81
[2019-10-29 04:04] VITALS: BP 172/67
[2019-10-29] MEDS: HydrALAZINE HCL 20 MG/ML VIAL IVP PRN ×2 (05:52→12:22)
[2019-10-29] MEDS: LEVOTHYROXINE SODIUM 25 MCG TABLET PO SCH (05:53)
[2019-10-29 06:46] LABS: BASOPHILS % (AUTO) 0.6 % (0.0-2.0); EOSINOPHILS % (AUTO) 2.6 % (1.0-6.0); HEMATOCRIT 33.4 % (36-46); HEMOGLOBIN 11.1 g/dL (12.0-16.0); LYMPHOCYTES % (AUTO) 19.2 % (22.0-44.0); MEAN CORPUSCULAR HGB CONC 33.1 G/dL (31.0-37.0); MEAN CORPUSCULAR VOLUME 84 fL (80-100); MONOCYTES # (AUTO) 0.3 K/uL (0.1-1.0); MONOCYTES % (AUTO) 6.5 % (2.0-9.0); NEUTROPHILS # (AUTO) 3.8 K/uL (1.8-7.7); NEUTROPHILS % (AUTO) 71.1 % (40.0-70.0); PLATELET COUNT (AUTO) 169 K/uL (150-450); RED BLOOD CELL COUNT(AUTO) 3.96 MIL/uL (4.00-5.20); RED CELL DISTRIBUTION WIDTH 21.6 % (11.5-14.5)
[2019-10-29 06:58] VITALS: BP 148/58
[2019-10-29 07:21] LABS: ALBUMIN 2.3 g/dL (3.4-5.0); BILIRUBIN,TOTAL 0.2 mg/dL (0.1-1.0); CALCIUM, TOTAL 8.1 mg/dL (8.8-10.5); CREATININE 2.31 mg/dL (0.60-1.30); TOTAL PROTEIN, SERUM 6.2 g/dL (6.4-8.2)
[2019-10-29] MEDS: HydrALAZINE HCL 50 MG TABLET PO SCH ×2 (08:17→22:09)
[2019-10-29] MEDS: HEPARIN SODIUM,PORCINE 5,000 UNITS/ML VIAL SQ SCH ×4 (08:17→23:11)
[2019-10-29] MEDS: METOPROLOL TARTRATE 25 MG TABLET PO SCH ×2 (08:17→22:09)
[2019-10-29] MEDS: ATORVASTATIN CALCIUM 40 MG TABLET PO SCH (08:17)
[2019-10-29] MEDS: DOCUSATE SODIUM 100 MG CAPSULE PO SCH ×2 (08:17→21:00)
[2019-10-29] MEDS: PARICALCITOL 1 MCG CAPSULE PO SCH (08:23)
[2019-10-29 15:48] VITALS: BP 175/72
[2019-10-29 15:49] LABS: APPEARANCE,URINE TURBID (CLEAR); GLUCOSE, URINE (UA) NEGATIVE (NEGATIVE); KETONES,URINE 40 mg/dL (NEGATIVE); LEUKOCYTE ESTERASE ,URINE LARGE (NEGATIVE); NITRATE,URINE POSITIVE (NEGATIVE); OCCULT BLOOD,URINE LARGE (NEGATIVE); PROTEIN,URINE SEE CONFIRM (NEGATIVE)
[2019-10-29 16:29] LABS: BILIRUBIN,URINE PRELIM. POSITIVE (NEGATIVE)
[2019-10-29 16:44] LABS: SULFOSALICYLIC ACID,URINE 4+ (Negative)
[2019-10-29 16:49] LABS: BACTERIA,URINE Moderate /HPF (None Seen); RBC,URINE >100 /HPF (0-2); WBC,URINE 51-100 /HPF (0-5)
[2019-10-29 16:50] LABS: SQUAMOUS EPITHELIAL CELL,UR Few /LPF (None Seen)
[2019-10-29] MEDS ORDERED: SODIUM CHLORIDE 0.9% 250 ML IV ONE (18:10)
[2019-10-29] MEDS: CefTRIAXone 1 GM/DEXTROSE 50 ML IV SCH (18:11)
[2019-10-29 21:09] VITALS: BP 192/69
[2019-10-30] MEDS: LEVOTHYROXINE SODIUM 25 MCG TABLET PO SCH (06:30)
[2019-10-30 07:42] VITALS: BP 201/70
[2019-10-30] MEDS: HydrALAZINE HCL 50 MG TABLET PO SCH ×2 (07:52→21:28)
[2019-10-30] MEDS: PARICALCITOL 1 MCG CAPSULE PO SCH (07:52)
[2019-10-30] MEDS: METOPROLOL TARTRATE 25 MG TABLET PO SCH ×2 (07:52→21:28)
[2019-10-30] MEDS: DOCUSATE SODIUM 100 MG CAPSULE PO SCH ×2 (07:52→21:00)
[2019-10-30] MEDS: ATORVASTATIN CALCIUM 40 MG TABLET PO SCH (07:52)
[2019-10-30] MEDS: HEPARIN SODIUM,PORCINE 5,000 UNITS/ML VIAL SQ SCH ×3 (07:52→23:39)
[2019-10-30 12:31] VITALS: BP 189/78
[2019-10-30] MEDS: HydrALAZINE HCL 20 MG/ML VIAL IVP PRN (13:46)
[2019-10-30 13:49] VITALS: BP 177/90
[2019-10-30 16:15] VITALS: BP 159/70
[2019-10-30] MEDS: CefTRIAXone 1 GM/DEXTROSE 50 ML IV SCH (17:59)
[2019-10-30 19:35] VITALS: BP 204/77
[2019-10-30 23:35] VITALS: BP 153/57
[2019-10-31 03:18] VITALS: BP 150/68
[2019-10-31] MEDS: LEVOTHYROXINE SODIUM 25 MCG TABLET PO SCH (06:30)
[2019-10-31 07:07] LABS: BASOPHILS % (AUTO) 0.8 % (0.0-2.0); EOSINOPHILS % (AUTO) 4.7 % (1.0-6.0); HEMATOCRIT 34.7 % (36-46); HEMOGLOBIN 11.3 g/dL (12.0-16.0); LYMPHOCYTES % (AUTO) 19.3 % (22.0-44.0); MEAN CORPUSCULAR HEMOGLOBIN 27.6 pg (26.0-34.0); MEAN CORPUSCULAR HGB CONC 32.7 G/dL (31.0-37.0); MEAN CORPUSCULAR VOLUME 85 fL (80-100); MONOCYTES # (AUTO) 0.4 K/uL (0.1-1.0); MONOCYTES % (AUTO) 6.9 % (2.0-9.0); NEUTROPHILS # (AUTO) 3.5 K/uL (1.8-7.7); NEUTROPHILS % (AUTO) 68.3 % (40.0-70.0); PLATELET COUNT (AUTO) 180 K/uL (150-450); RED BLOOD CELL COUNT(AUTO) 4.11 MIL/uL (4.00-5.20)
[2019-10-31 07:36] LABS: ALBUMIN 2.2 g/dL (3.4-5.0); BILIRUBIN,TOTAL 0.1 mg/dL (0.1-1.0); CALCIUM, TOTAL 8.2 mg/dL (8.8-10.5); CREATININE 2.49 mg/dL (0.60-1.30); POTASSIUM 4.8 mmol/L (3.5-5.1); TOTAL PROTEIN, SERUM 6.3 g/dL (6.4-8.2)
[2019-10-31 07:44] VITALS: BP 196/72
[2019-10-31] MEDS: METOPROLOL TARTRATE 25 MG TABLET PO SCH ×2 (07:46→21:24)
[2019-10-31] MEDS: HydrALAZINE HCL 50 MG TABLET PO SCH ×2 (07:46→21:24)
[2019-10-31] MEDS: DOCUSATE SODIUM 100 MG CAPSULE PO SCH ×2 (07:46→21:00)
[2019-10-31] MEDS: PARICALCITOL 1 MCG CAPSULE PO SCH (07:46)
[2019-10-31] MEDS: HEPARIN SODIUM,PORCINE 5,000 UNITS/ML VIAL SQ SCH ×2 (07:46→21:00)
[2019-10-31] MEDS: ATORVASTATIN CALCIUM 40 MG TABLET PO SCH (07:46)
[2019-10-31 11:19] VITALS: BP 142/62
[2019-10-31] MEDS: AmLODIPine BESYLATE 5 MG TABLET PO SCH (12:18)
[2019-10-31] MEDS: CIPROFLOXACIN HCL 250 MG TABLET PO SCH (12:18)
[2019-10-31 15:57] VITALS: BP 160/71
[2019-10-31 19:43] VITALS: BP 157/75
[2019-10-31 23:10] VITALS: BP 141/68
[2019-11-01 04:22] VITALS: BP 196/81
[2019-11-01] MEDS: LEVOTHYROXINE SODIUM 25 MCG TABLET PO SCH (06:23)
[2019-11-01 07:36] VITALS: BP 169/81
[2019-11-01 07:48] LABS: BASOPHILS % (AUTO) 0.9 % (0.0-2.0); EOSINOPHILS % (AUTO) 3.5 % (1.0-6.0); HEMATOCRIT 34.2 % (36-46); HEMOGLOBIN 11.3 g/dL (12.0-16.0); LYMPHOCYTES # (AUTO) 0.9 K/uL (1.0-4.8); LYMPHOCYTES % (AUTO) 16.3 % (22.0-44.0); MEAN CORPUSCULAR HEMOGLOBIN 27.9 pg (26.0-34.0); MEAN CORPUSCULAR VOLUME 85 fL (80-100); MONOCYTES # (AUTO) 0.4 K/uL (0.1-1.0); MONOCYTES % (AUTO) 6.2 % (2.0-9.0); NEUTROPHILS # (AUTO) 4.2 K/uL (1.8-7.7); NEUTROPHILS % (AUTO) 73.1 % (40.0-70.0); PLATELET COUNT (AUTO) 184 K/uL (150-450); RED BLOOD CELL COUNT(AUTO) 4.05 MIL/uL (4.00-5.20); RED CELL DISTRIBUTION WIDTH 21.5 % (11.5-14.5)
[2019-11-01 08:11] LABS: ALBUMIN 2.2 g/dL (3.4-5.0); BILIRUBIN,TOTAL 0.2 mg/dL (0.1-1.0); CALCIUM, TOTAL 7.9 mg/dL (8.8-10.5); CREATININE 2.47 mg/dL (0.60-1.30); POTASSIUM 4.8 mmol/L (3.5-5.1); TOTAL PROTEIN, SERUM 6.2 g/dL (6.4-8.2)
[2019-11-01] MEDS: HydrALAZINE HCL 50 MG TABLET PO SCH ×2 (08:18→20:13)
[2019-11-01] MEDS: CIPROFLOXACIN HCL 250 MG TABLET PO SCH (08:19)
[2019-11-01] MEDS: DOCUSATE SODIUM 100 MG CAPSULE PO SCH ×2 (08:19→20:13)
[2019-11-01] MEDS: ATORVASTATIN CALCIUM 40 MG TABLET PO SCH (08:19)
[2019-11-01] MEDS: AmLODIPine BESYLATE 5 MG TABLET PO SCH (08:20)
[2019-11-01] MEDS: METOPROLOL TARTRATE 25 MG TABLET PO SCH ×2 (08:20→20:13)
[2019-11-01] MEDS: PARICALCITOL 1 MCG CAPSULE PO SCH (08:20)
[2019-11-01] MEDS: HEPARIN SODIUM,PORCINE 5,000 UNITS/ML VIAL SQ SCH ×2 (08:21→20:13)
[2019-11-01] MEDS ORDERED: AmLODIPine BESYLATE 5 MG TABLET PO ONE (11:15)
[2019-11-01 16:00] VITALS: BP 134/56
[2019-11-01 19:26] VITALS: BP 135/68
[2019-11-02] VITALS (8 sets, daily range): BP systolic 118–185; BP diastolic 54–104
[2019-11-02] MEDS: LEVOTHYROXINE SODIUM 25 MCG TABLET PO SCH (06:06)
[2019-11-02 07:49] LABS: BASOPHILS % (AUTO) 1.6 % (0.0-2.0); EOSINOPHILS % (AUTO) 4.9 % (1.0-6.0); HEMATOCRIT 40.1 % (36-46); HEMOGLOBIN 13.2 g/dL (12.0-16.0); LYMPHOCYTES # (AUTO) 0.8 K/uL (1.0-4.8); MEAN CORPUSCULAR HEMOGLOBIN 28.1 pg (26.0-34.0); MEAN CORPUSCULAR HGB CONC 32.9 G/dL (31.0-37.0); MEAN CORPUSCULAR VOLUME 85 fL (80-100); MONOCYTES # (AUTO) 0.4 K/uL (0.1-1.0); MONOCYTES % (AUTO) 9.2 % (2.0-9.0); NEUTROPHILS # (AUTO) 2.6 K/uL (1.8-7.7); NEUTROPHILS % (AUTO) 64.3 % (40.0-70.0); PLATELET COUNT (AUTO) 176 K/uL (150-450); RED CELL DISTRIBUTION WIDTH 20.9 % (11.5-14.5)
[2019-11-02 08:14] LABS: ALBUMIN 2.4 g/dL (3.4-5.0); BILIRUBIN,TOTAL 0.1 mg/dL (0.1-1.0); CALCIUM, TOTAL 8.4 mg/dL (8.8-10.5); CREATININE 2.71 mg/dL (0.60-1.30); POTASSIUM 4.4 mmol/L (3.5-5.1); TOTAL PROTEIN, SERUM 6.7 g/dL (6.4-8.2)
[2019-11-02] MEDS: DOCUSATE SODIUM 100 MG CAPSULE PO SCH ×2 (09:50→20:43)
[2019-11-02] MEDS: HydrALAZINE HCL 50 MG TABLET PO SCH ×2 (09:50→20:43)
[2019-11-02] MEDS: CIPROFLOXACIN HCL 250 MG TABLET PO SCH (09:50)
[2019-11-02] MEDS: METOPROLOL TARTRATE 25 MG TABLET PO SCH ×2 (09:51→20:43)
[2019-11-02] MEDS: ATORVASTATIN CALCIUM 40 MG TABLET PO SCH (09:51)
[2019-11-02] MEDS: AmLODIPine BESYLATE 10 MG TABLET PO SCH (09:51)
[2019-11-02] MEDS: HEPARIN SODIUM,PORCINE 5,000 UNITS/ML VIAL SQ SCH ×2 (09:52→20:43)
[2019-11-02] MEDS: PARICALCITOL 1 MCG CAPSULE PO SCH (09:52)
[2019-11-03] VITALS (7 sets, daily range): BP systolic 138–192; BP diastolic 61–77
[2019-11-03] MEDS: HydrALAZINE HCL 50 MG TABLET PO SCH ×2 (05:06→21:59)
[2019-11-03] MEDS: LEVOTHYROXINE SODIUM 25 MCG TABLET PO SCH (06:23)
[2019-11-03 06:49] LABS: BASOPHILS % (AUTO) 1.4 % (0.0-2.0); EOSINOPHILS % (AUTO) 4.9 % (1.0-6.0); HEMATOCRIT 37.7 % (36-46); HEMOGLOBIN 12.4 g/dL (12.0-16.0); LYMPHOCYTES % (AUTO) 23.2 % (22.0-44.0); MEAN CORPUSCULAR HEMOGLOBIN 27.9 pg (26.0-34.0); MEAN CORPUSCULAR HGB CONC 32.9 G/dL (31.0-37.0); MEAN CORPUSCULAR VOLUME 85 fL (80-100); MONOCYTES # (AUTO) 0.3 K/uL (0.1-1.0); MONOCYTES % (AUTO) 7.6 % (2.0-9.0); NEUTROPHILS # (AUTO) 2.8 K/uL (1.8-7.7); NEUTROPHILS % (AUTO) 62.9 % (40.0-70.0); PLATELET COUNT (AUTO) 205 K/uL (150-450); RED BLOOD CELL COUNT(AUTO) 4.45 MIL/uL (4.00-5.20)
[2019-11-03 07:12] LABS: ALBUMIN 2.4 g/dL (3.4-5.0); BILIRUBIN,TOTAL 0.2 mg/dL (0.1-1.0); CREATININE 2.8 mg/dL (0.60-1.30); POTASSIUM 4.6 mmol/L (3.5-5.1); TOTAL PROTEIN, SERUM 6.8 g/dL (6.4-8.2)
[2019-11-03 07:25] LABS: CALCIUM, TOTAL 8.8 mg/dL (8.8-10.5)
[2019-11-03] MEDS: CIPROFLOXACIN HCL 250 MG TABLET PO SCH (08:15)
[2019-11-03] MEDS: AmLODIPine BESYLATE 10 MG TABLET PO SCH (08:16)
[2019-11-03] MEDS: ATORVASTATIN CALCIUM 40 MG TABLET PO SCH (08:16)
[2019-11-03] MEDS: PARICALCITOL 1 MCG CAPSULE PO SCH (08:16)
[2019-11-03] MEDS: METOPROLOL TARTRATE 25 MG TABLET PO SCH ×2 (08:16→21:59)
[2019-11-03] MEDS: DOCUSATE SODIUM 100 MG CAPSULE PO SCH ×2 (08:22→22:00)
[2019-11-03] MEDS: HEPARIN SODIUM,PORCINE 5,000 UNITS/ML VIAL SQ SCH ×2 (08:24→22:04)
[2019-11-04 00:44] VITALS: BP 140/58
[2019-11-04 05:17] VITALS: BP 156/71
[2019-11-04] MEDS: LEVOTHYROXINE SODIUM 25 MCG TABLET PO SCH (06:50)
[2019-11-04 07:23] LABS: BASOPHILS % (AUTO) 1.2 % (0.0-2.0); EOSINOPHILS % (AUTO) 4.6 % (1.0-6.0); HEMATOCRIT 31.7 % (36-46); HEMOGLOBIN 10.6 g/dL (12.0-16.0); LYMPHOCYTES % (AUTO) 20.9 % (22.0-44.0); MEAN CORPUSCULAR HEMOGLOBIN 28.6 pg (26.0-34.0); MEAN CORPUSCULAR HGB CONC 33.5 G/dL (31.0-37.0); MEAN CORPUSCULAR VOLUME 85 fL (80-100); MONOCYTES # (AUTO) 0.4 K/uL (0.1-1.0); NEUTROPHILS # (AUTO) 3.2 K/uL (1.8-7.7); NEUTROPHILS % (AUTO) 65.3 % (40.0-70.0); PLATELET COUNT (AUTO) 195 K/uL (150-450); RED BLOOD CELL COUNT(AUTO) 3.72 MIL/uL (4.00-5.20); RED CELL DISTRIBUTION WIDTH 20.6 % (11.5-14.5)
[2019-11-04 07:44] LABS: CALCIUM, TOTAL 8.4 mg/dL (8.8-10.5); CREATININE 2.74 mg/dL (0.60-1.30); POTASSIUM 5.1 mmol/L (3.5-5.1)
[2019-11-04 07:59] VITALS: BP 183/69
[2019-11-04] MEDS: ATORVASTATIN CALCIUM 40 MG TABLET PO SCH (08:38)
[2019-11-04] MEDS: AmLODIPine BESYLATE 10 MG TABLET PO SCH (08:38)
[2019-11-04] MEDS: PARICALCITOL 1 MCG CAPSULE PO SCH (08:38)
[2019-11-04] MEDS: METOPROLOL TARTRATE 25 MG TABLET PO SCH ×2 (08:38→21:35)
[2019-11-04] MEDS: HydrALAZINE HCL 50 MG TABLET PO SCH ×2 (08:38→16:00)
[2019-11-04] MEDS: HEPARIN SODIUM,PORCINE 5,000 UNITS/ML VIAL SQ SCH ×2 (08:38→21:35)
[2019-11-04] MEDS: DOCUSATE SODIUM 100 MG CAPSULE PO SCH ×2 (08:44→21:00)
[2019-11-04 11:38] VITALS: BP 163/57
[2019-11-04 16:22] VITALS: BP 149/72
[2019-11-04 19:59] VITALS: BP 150/57
[2019-11-05] VITALS (7 sets, daily range): BP systolic 135–171; BP diastolic 47–71
[2019-11-05] MEDS: HydrALAZINE HCL 50 MG TABLET PO SCH ×4 (00:29→23:41)
[2019-11-05] MEDS: LEVOTHYROXINE SODIUM 25 MCG TABLET PO SCH (05:32)
[2019-11-05] MEDS: PARICALCITOL 1 MCG CAPSULE PO SCH (08:22)
[2019-11-05] MEDS: METOPROLOL TARTRATE 25 MG TABLET PO SCH ×2 (08:22→20:26)
[2019-11-05] MEDS: AmLODIPine BESYLATE 10 MG TABLET PO SCH (08:22)
[2019-11-05] MEDS: ATORVASTATIN CALCIUM 40 MG TABLET PO SCH (08:22)
[2019-11-05] MEDS: HEPARIN SODIUM,PORCINE 5,000 UNITS/ML VIAL SQ SCH ×2 (08:22→20:25)
[2019-11-05] MEDS: DOCUSATE SODIUM 100 MG CAPSULE PO SCH ×2 (08:24→20:26)
[2019-11-06 00:04] LABS: GLUCOMETER DEV NAME(LOC) 6N.1; GLUCOSE,POINT OF CARE 96 MG/DL (70-110)
[2019-11-06 05:17] VITALS: BP 160/72
[2019-11-06] MEDS: LEVOTHYROXINE SODIUM 25 MCG TABLET PO SCH (05:38)
[2019-11-06 08:23] VITALS: BP 143/69
[2019-11-06] MEDS: PARICALCITOL 1 MCG CAPSULE PO SCH (08:23)
[2019-11-06] MEDS: AmLODIPine BESYLATE 10 MG TABLET PO SCH (08:24)
[2019-11-06] MEDS: HydrALAZINE HCL 50 MG TABLET PO SCH ×2 (08:24→16:55)
[2019-11-06] MEDS: DOCUSATE SODIUM 100 MG CAPSULE PO SCH ×2 (08:24→20:35)
[2019-11-06] MEDS: ATORVASTATIN CALCIUM 40 MG TABLET PO SCH (08:24)
[2019-11-06] MEDS: HEPARIN SODIUM,PORCINE 5,000 UNITS/ML VIAL SQ SCH ×2 (08:24→20:35)
[2019-11-06] MEDS: METOPROLOL TARTRATE 25 MG TABLET PO SCH ×2 (08:24→20:34)
[2019-11-06 11:29] VITALS: BP 130/70
[2019-11-06 13:55] LABS: GLUCOMETER DEV NAME(LOC) 6N.1; GLUCOSE,POINT OF CARE 92 MG/DL (70-110)
[2019-11-06] MEDS ORDERED: AMLO10TA7 PO (13:56)
[2019-11-06] MEDS ORDERED: HYDR-2924 PO (14:00)
[2019-11-06 20:31] VITALS: BP 130/38
[2019-11-06 23:59] VITALS: BP 169/59
[2019-11-07] MEDS: HydrALAZINE HCL 50 MG TABLET PO SCH ×2 (00:02→08:34)
[2019-11-07 04:49] VITALS: BP 153/64
[2019-11-07] MEDS: LEVOTHYROXINE SODIUM 25 MCG TABLET PO SCH (05:08)
[2019-11-07] MEDS: ATORVASTATIN CALCIUM 40 MG TABLET PO SCH (08:34)
[2019-11-07] MEDS: METOPROLOL TARTRATE 25 MG TABLET PO SCH (08:34)
[2019-11-07] MEDS: PARICALCITOL 1 MCG CAPSULE PO SCH (08:35)
[2019-11-07] MEDS: HEPARIN SODIUM,PORCINE 5,000 UNITS/ML VIAL SQ SCH (08:35)
[2019-11-07] MEDS: AmLODIPine BESYLATE 10 MG TABLET PO SCH (08:35)
[2019-11-07 08:39] VITALS: BP 177/82
[2019-11-07] MEDS: DOCUSATE SODIUM 100 MG CAPSULE PO SCH (08:49)
[2019-11-07 11:40] LABS: GLUCOMETER DEV NAME(LOC) 4E.2; GLUCOSE,POINT OF CARE 154 MG/DL (70-110)
== END 2019-11-07 14:15 | DRG 292 ==
LOC: EMS 10:42 → 5S 15:16 → 4E 11-05 15:05
PROVIDERS: ADMIT Hospitalist; ATTEND Hospitalist
DX: I13.0 Hypertensive heart and chronic kidney disease with heart failure and stage 1 through stage 4 chronic kidney disease, or unspecified chronic kidney disease (principal); N17.9 Acute kidney failure, unspecified; E44.0 Moderate protein-calorie malnutrition; N18.4 Chronic kidney disease, stage 4 (severe); E03.9 Hypothyroidism, unspecified; Z91.14 Patient's other noncompliance with medication regimen; E11.9 Type 2 diabetes mellitus without complications; E78.5 Hyperlipidemia, unspecified; I50.9 Heart failure, unspecified; E11.22 Type 2 diabetes mellitus with diabetic chronic kidney disease; J45.909 Unspecified asthma, uncomplicated; Z82.49 Family history of ischemic heart disease and other diseases of the circulatory system
CPT/HCPCS: 76770; 87081; 87086; 97116; 97162; 97530; 99291; G0378; G0480; J0360; J0696; J1644; J2405; J3490; J7050